=== PATIENT | male | born 2000 | race Caucasian/White ===

== ENCOUNTER 2019-09-18 13:37 | Emergency (ER) | payer BC, SELFPAY ==
[2019-09-18 13:38] VITALS: BP 125/87; PULSE 82; RESP 16; O2SAT 95; BMI 20.3
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
[2019-09-18 14:04] VITALS: O2SAT 97
[2019-09-18] MEDS: ceFAZolin 1,000 mg SDV 1000 MG IM (14:29)
[2019-09-18 14:45] VITALS: BP 125/75; PULSE 91; O2SAT 99
== END 2019-09-18 14:45 | disposition home or self-care (01) ==
LOC: ER 14:38
PROVIDERS: Emergency Provider Family Medicine; Family Provider Nurse Practitioner; PCP Nurse Practitioner Family
DX: S51.812A Laceration without foreign body of left forearm, initial encounter (principal); S00.81XA Abrasion of other part of head, initial encounter; Y04.8XXA Assault by other bodily force, initial encounter
CPT/HCPCS: 12032; 12345; 96372; 99281; 99283; J0690

== ENCOUNTER 2023-02-17 07:23 | Emergency (ER) | payer BC, SELFPAY ==
[2023-02-17 07:47] VITALS: BP 142/93; PULSE 61; RESP 18; TEMP 36.6; O2SAT 100; BMI 21.7
--- NOTE | 2023-02-17 08:02 | W.ED.EXTPRO ---
HPI - Extremity Problem General: Chief complaint: Skin/Abscess/Foreign Body Stated complaint: bump on elbow Time Seen by Provider: 02/17/23 07:24 Source: patient Mode of arrival: ambulatory Limitations: no limitations History of Present Illness: Patient is a 22-year-old male who presents to the emergency department complaining of left elbow pain onset last night. Patient states he woke this morning with pain over his left olecranon, with associated redness and swelling. 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 He has not taken for anything or tried anything such as ice for his pain at this time. He denies fever, nausea, vomiting, or any other signs and symptoms of systemic illness. He states that his pain is acutely worsened by palpation and extending the left arm. The pain is described as stiff and throbbing. It does not radiate up or down the arm. MD Complaint: joint pain (Left elbow) Onset (ago): hour(s) (woke up with symptoms) Pain Consistency: constant Location: left Quality: other (Stiff and throbbing) Radiation: none Relieving factors: immobilization Exacerbating factors: range of motion and palpation Associated symptoms: Reports no associated symptoms; Deny chest pain, fever(s) or rash Context: other (Repetitive pressure on the elbow) Review of Systems Const: Denies: fever(s), chills, body aches, fatigue or malaise Eyes: Denies: change in vision or blurry vision Card: Denies: chest pain, palpitations, irregular heart rhythm, lightheadedness, syncope or dyspnea on exertion Resp: Denies: dyspnea, productive cough or pain on inspiration GI: Denies: abdominal pain, nausea, vomiting, heartburn or diarrhea : Denies: difficulty urinating or dysuria Musc: Reports: joint pain (Left elbow), joint swelling (Left elbow) and joint redness (Left elbow); Denies: neck pain, back pain, extremity pain, extremity swelling, joint stiffness (Left elbow) or limited range of motion (Left elbow) Skin/Breast: Denies: rash Neuro: Denies: numbness in extremities, weakness in extremities or sensory changes PFS ED PFSH: Medical History (Updated 02/17/23 @ 08:17 by LENNY Epps) Spontaneous pneumothorax Social History Smoking and tobacco status: never smoked Physical Exam Const: COMMON NORMALS: no acute distress, average body habitus, patient oriented x3, no limitations, healthy appearing, alert and well nourished Extremity: LEFT UPPER EXTREMITY: Yes elbow joint Left elbow: Yes inspection (Left elbow is mildly edematous and erythematous), Yes palpation (Tenderness to palpation over the left olecranon process), Yes ROM (Range of motion is full but hesitant due to discomfort ) and Yes neurovascular exam (Neurovascularly intact) Neuro: COMMON NORMALS: patient oriented x3, moves all extremities, no focal motor deficits and no sensory deficits noted SENSORIUM/ORIENTATION: Yes alert Skin: COMMON NORMALS: no rashes or lesions noted NARRATIVE SKIN EXAM: no overlying skin abrasions, tears, bites, punctures, etc to suggest infection GENERAL SKIN EXAM: no rashes or lesions noted Course Vital Signs: Vital signs: Vital Signs Temperature 97.8 F 02/17/23 07:47 Pulse Rate 61 02/17/23 07:47 Respiratory Rate 18 02/17/23 07:47 Blood Pressure 142/93 02/17/23 07:47 Pulse Oximetry 100 02/17/23 07:47 MDM - Extremity (Nontraumatic) Medical Decision Making This patient was seen and evaluated in the emergency department today for acute onset left elbow swelling/pain. Examination revealed a swollen and moderately tender left olecranon process to palpation, without signs or symptoms of systemic illness. His clinical presentation is consistent with an inflammatory olecranon bursitis, without signs of septic joint. I feel that it is appropriate to send him home with as needed pain medication as well as a steroid taper to control his pain and swelling. He is given return precautions and symptoms to look out for such as fever and red streaking. Patient agrees with this plan and will be discharged home. Discharge Plan Discharge Patient Disposition: Home Clinical Impression: Bursitis of left elbow Qualifiers: Elbow bursitis location: olecranon bursitis Qualified Code(s): M70.22 - Olecranon bursitis, left elbow Condition: Stable Prescriptions: New prednisone 10 mg tablet 10 mg PO DAILY 10 Days Qty: 27 0RF Rx Instructions: 6 tabs on days 1-2, 5 tabs on days 3, 4 tabs on day 4, 3 tabs on day 5, 2 tabs on day 6, 1 tab on day 7 diclofenac sodium 50 mg tablet,delayed release (DR/EC) 50 mg PO Q12H PRN (Reason: pain) Qty: 20 0RF Discharge Orders: Discharge ED (Routine); Ordered 02/17/23 Ordered By: Katherine Do Patient Instructions: Bursitis - Elbow Activity Restrictions/Additional Instructions: Take prescribed medication as needed for pain, as well as prednisone taper. Avoid putting any pressure on the elbow to allow it appropriate time to heal. You may purchase a padded elbow brace as discussed, for added relief. Apply ice as needed for any swelling or pain relief. Please return if you develop any sudden fevers, red streaking, or a extension of the redness and swelling. Coding Level of Care Code ED Police Booking Officer for Chanel Dumont
--- NOTE | 2023-02-17 08:16 | PC.PHAR ---
did pts med rec but pt was discharged with discharged medications before being able to put in pt takes no rx or otc meds
--- NOTE | 2023-02-20 12:40 | DCPLANNER ---
creative project manager called patient due to no primary care physician - no answer at this time.
--- NOTE | 2023-03-11 13:30 | DCPLANNER ---
solution design and analysis manager called patient due to no primary care physician - assistant case manager unable to speak with patient at this time, a voicemail was left for patient to return window caser phone call.
== END 2023-02-17 08:22 | disposition home or self-care (01) ==
PROVIDERS: Emergency Provider Physician Assistant
DX: M70.22 Olecranon bursitis, left elbow (principal)
CPT/HCPCS: 99283

== ENCOUNTER 2023-05-12 12:38 | Emergency (ER) | payer BC, SELFPAY ==
--- NOTE | 2023-05-12 12:39 | XR_ITS ---
WS: [id number] Left knee, 3 views, 05/12/2023 Clinical Data: injury Comparison: None. Findings: No fractures or dislocations are seen. The joint spaces are normal. The patella is intact. The soft t issues are unremarkable. Impression: Negative left knee. Kellgren-Matias Classification: grade 0 (none): definite absence of x-ray changes of osteoarthritis
[2023-05-12 12:59] VITALS: BP 155/98; PULSE 87; RESP 16; TEMP 36.7; O2SAT 98; BMI 22.4
--- NOTE | 2023-05-12 13:04 | ED_ITS ---
HPI - Extremity Injury (Lower) General: Chief Complaint: Extremity Injury, Lower Stated Complaint: Lt Knee inj Time Seen by Provider: 05/12/23 12:52 Source: patient Mode of arrival: ambulatory Limitations: no limitations History of Present Illness: Patient is a 23-year-old male presents to the emergency department complaining of left knee pain onset last night. Patient states he was wrestling with his friends when he suddenly twisted his left knee after planting weirdly . He does not report any acute swelling or bruising, but states that he woke up this morning and the pain seemed to have gotten worse. He denies any prior injuries or surgeries to the knee. He is able to walk around, though with a limp. Pain is worse with movement/ambulating. He denies numbness, tingling, loss of sensation, color/temp changes. MD complaint: knee injury Onset (ago): day(s) (yesterday) Injury: Left: knee Place: home Relieving factors: immobilization Exacerbating factors: weight bearing, movement and palpation Context: other (twisted) Associated symptoms: Reports no associated symptoms Other symptoms: none Review of Systems Const: Denies: fever(s) Card: Denies: chest pain Resp: Denies: dyspnea Musc: Reports: joint pain (L knee ) and joint swelling (L knee); Denies: neck pain, back pain, extremity pain, extremity swelling, joint redness or joint warmth Neuro: Reports: difficulty walking (secondary to knee pain); Denies: numbness in extremities, weakness in extremities or sensory changes [facility] ED PFSH: Medical History (Updated 05/12/23 @ 13:28 by LENNY Epps) Spontaneous pneumothorax Social History Smoking and tobacco/nicotine status: never used tobacco/nicotine Physical Exam Const: COMMON NORMALS: no acute distress, average body habitus, no limitations, healthy appearing, alert and well nourished Extremity: COMMON NORMALS: normal to inspection, full ROM, capillary refill normal, no clubbing, cyanosis or edema, no calf tenderness and no pedal edema GENERAL: Yes normal exam except as noted LEFT LOWER EXTREMITY: Yes knee joint Left knee: Yes palpation (possible small prepatellar effusion), Yes ROM (normal), Yes neurovascular exam (normal) and Yes other (no obvious joint laxity noted) Neuro: COMMON NORMALS: moves all extremities, no focal motor deficits and no sensory deficits noted SENSORIUM/ORIENTATION: Yes alert Skin: TRAUMA: no lacerations or abrasions Course Vital Signs: Vital signs: Vital Signs Temperature 98.1 F 05/12/23 12:59 Pulse Rate 87 05/12/23 12:59 Respiratory Rate 16 05/12/23 12:59 Blood Pressure 155/98 05/12/23 12:59 Pulse Oximetry 98 05/12/23 12:59 MDM - Extremity Injury (Lower) Medical Decision Making XR negative. Will ANJEL wrap. Offered crutches but he declines. RICE therapy discussed. Recommend follow up with PCP in 1-2 weeks if symptoms do not seem to be improving. XR interpretation done by ED provider, pending radiology final review Discharge Plan Discharge Patient Disposition: Home Clinical Impression: Injury of knee, left Qualifiers: Encounter type: initial encounter Qualified Code(s): S89.92XA - Unspecified injury of left lower leg, initial encounter Condition: Stable Prescriptions: No Action diclofenac sodium 50 mg tablet,delayed release (DR/EC) 50 mg PO Q12H PRN (Reason: pain) Qty: 20 0RF Discharge Orders: Discharge ED (Routine); Ordered 05/12/23 Ordered By: Katherine Do Patient Instructions: RICE Therapy Activity Restrictions/Additional Instructions: As we discussed please follow-up with primary care in 1 to 2 weeks if symptoms do not seem to be improving. Coding Level of Care Code ED Holder Pile Driving for Chanel Dumont
== END 2023-05-12 13:54 | disposition home or self-care (01) ==
PROVIDERS: Emergency Provider Physician Assistant
DX: S89.92XA Unspecified injury of left lower leg, initial encounter (principal); X50.1XXA Overexertion from prolonged static or awkward postures, initial encounter; Y93.72 Activity, wrestling
CPT/HCPCS: 73562; 99283

== ENCOUNTER 2025-06-01 19:59 | Emergency (ER) | payer MEDICAID, SELFPAY ==
[2025-06-01 20:06] VITALS: BP 132/87; PULSE 85; RESP 16; TEMP 36.4; O2SAT 96; BMI 20.9
--- OUTSIDE RECORDS SUMMARY | 2025-06-01 20:08 | XMS_ITS | Patient Health Record ---
Author Organization [facility] Address [address] [place] [address] Care Team Providers Care Drug Enforcement Administration Agent Name Role Phone Ninoska Hunter Primary Care Provider [phone] Gambino, Wendy Unavailable [phone] Allergies No Known Allergies Reason For Referral Reason right elbow pain d eformity swelling elbow Diagnosis 1 Elbow pain, right (M 25.521) Referral Organization [facility] Referring Provider First Name [facility] Referring Provider Last Name Gambino Referring Provider Speciality Nurse Prac titioner Ref[facility] Referred Provider Specialty Orthopedic S urgery General Notes Jaquelin Helms RN 05/22/2025 11:45:26 AM WINCH STRIPPER > Patient was seen on Feb 06. Requested records., Jaquelin Helms RN 05/23/2025 02:46:38 PM WINCH STRIPPER > See note Referral Priority Routine Referral Appointment Date 02/06/2025 Medications Medication SIG (Take, Route, Frequency, Duration) Notes Start Date End Date Status traMADol HCl 50 MG Tablet 1 tablet as needed Orally q 4 hours prn severe pain; Duration: 30 days 01/31/2025 Active PARoxetine HCl 20 MG Tablet 1 tablet in the morning Orally Once a day; Duration: 30 days 10/13/2024 Not-Taking Ibuprofen 800 MG Tablet 1 tab Orally Thr ee times a day pc prn inflammatory pain; Duration: 14 days 01/31/2025 Active Social History Social History Depression Screening Social Info Question Answer Notes PHQ-9 Little interest or pleasure in doing thin gs Not at all Feeling down, depressed, or hopeless Not at all Trouble falling or staying asleep, or sleeping t oo much Not at all Feeling tired or having little energy Not at all Poor appetite or overeating Not at all Feeling bad about yourself, or that you are a failure, or have let yourself or your family down Not at all Trouble concentrating on thi ngs, such as reading the newspaper or watching television Not at all Moving or speaking so slowly that other people could have noticed. Or the opposite ? being so fidgety or restless that you have been moving around a lot more than usual Not at all Thoughts that you would be b gm off , or of hurting yourself in some way Not at all Total Score 0 Drug/Alcohol: Social Info Question Answer Notes AUDIT-C (Standard) Did you have a drink containing alcohol in the past year? Yes How often did you have a drink containing alcohol in the past year? Daily or almost daily (4 points) How many drinks did you have on a typical day when you were drinking in the past year? 5 or 6 drinks (2 points) How often did you have six or more drinks on one occasion in the past year? 4 or more times a week (4 points) Points 10 Interpretation Positive Tobacco Use: Social Info Question Answer Notes Tobacco Control (Standard) Additional Findings: Tobacc o user e-cigarette Section Notes: 10/13/24 PHQ9 10/13/24 PHQ9 10/13/24 PHQ9 Problems Problem Type SNOMED Code ICD Code Onset Dates Problem Status W/U Status Risk Notes Problem Alcohol abuse (53336606) Alcohol abuse (F10.10) Active confirmed Problem Anxiety depression (740937055) Anxiety with depression (F41.8) Active confirmed Vital Signs Heart Rate 67 /min 01/31/2025 Temperature 97.5 degrees Fahrenheit 01/31/2025 Respiratory Rate 20 /min 01/31/2025 Height-cm 182.88 cm 01/31/2025 Oximetry 100 % 01/31/2025 Blood pressure diastolic 85 mm Hg 01/31/2025 Weight-kg 68.95 kg 01/31/2025 Height 72 in 01/31/2025 Blood pressure systolic 136 mm Hg 01/31/2025 Weight 152 lbs 01/31/2025 BMI 20.61 kg/m2 01/31/2025 Encounters Encounter Location Date Provider Diagnosis [facility] [address] [place] [address] 10/13/2024 Ninoska Hunter Anxiety with depression F41.8 ; Alcohol abuse F10.10 and Depression screen Z13.31 [facility] [address] [place] [address] 01/31/2025 Wendy Gambino Elbow pain, right M25.521 [facility] [address] [place] [address] 04/21/2025 Ninoska Hunter Assessments Encounter Date Diagnosis (ICD Code) Assessment Notes Treatment Notes Treatment Clinical Notes Section Notes 01/31/2025 Elbow pain, right (ICD-10 - M25.521) tramadol ibuprofen ortho elevate ice 10/13/2024 Alcohol abuse (ICD-10 - F10.10) Recheck in 1 month. 10/13/2024 Anxiety with depression (ICD-10 - F41.8) Recheck in 1 month. 10/13/2024 Depression screen (ICD-10 - Z13.31) 01/31/2025 Other Questions asked and answered; discharged to home. Plan Of Treatment No Information Insurance Providers Payer Name Payer Address Payer Phone Subscriber Number Group Number Insured Name Patient Relationship to Insured Coverage Start Date Coverage End Date [place] [employer] [address] [address] [place] [address] [id number] MANI GIANG Self - patient is the insured Medical (General) History Surgical History Surgery Date(Month/Year) thoracotomy 2019 Hospitalization History Reason Date(Month/Year) fentanyl overdose 2021
--- OUTSIDE RECORDS SUMMARY | 2025-06-01 20:08 | XMS_ITS | Clinical Summary ---
Author Organization [facility] Address [address] [place] [address] Phone Care Team Providers Care Street Light Servicer Name Role Phone Unavailable Primary Care Provider Unavailabl e Allergies No known active allergies Medications HYDROcodone-thanh taminophen (NORCO) 5-325 mg tabletIndicatio ns:Pain, dental Take 1 Tablet by mouth every 4 hours as needed for Pain. Max Daily Amount: 6 Tablets 12 Tablet 09/16/2024 Active Family History Medical History Relation Name Comments No Known Problems Father No Known Problems Mother Relation Name Status Comments Father Mother Social History Tobacco Use Types Packs/Day Years Used Date Smoking Tobacco: Former Cigarettes Smokeless Tobacco: Never Tobacco Cessation:Counseling Given: Not Answered Alcohol Use Standard Drinks/Week Comments Not Currently 0 (1 standard drink = 0.6 oz pur e alcohol) Feeling Safe Answer Date Recorded Are you in a relationship wi th someone who hurts you emotionally and/or physically? No 09/16/2024 Sex and Gender Information Value Date Recorded Sex Assigned at Not on file Legal Sex Male 3:53 AM CDT Gender Identity Not on file Sexual Orientation Not on file Last Filed Vital Signs Vital Sign Reading Time Taken Comments Blood Pressure 148/100 09/16/2024 4:01 AM CDT Pulse 82 09/16/2024 4:01 AM CDT Temperature 36.9 C (98.4 F) 09/16/2024 4:01 AM CDT Respiratory Rate 16 09/16/2024 4:01 AM CDT Oxygen Saturation 100% 09/16/2024 4:01 AM CDT Inhaled Oxygen Concentration - - Weight 72.3 kg (159 lb 6.4 oz) 09/16/2024 4:01 A M CDT Height 182.9 cm (6') 09/16/2024 4:01 AM CDT Body Mass Index 21.62 09/16/2024 4:01 AM CDT Plan of Treatment Health Maintenance Due Date Last Done Comments DTAP/TDAP/TD VACCINES (1 - Tdap) 2017 INFLUENZA VACCINE (#1) 2025 HPV VACCINES (1 - 3-dose SCD M series) 2025 HEPATITIS B VACCINES Completed 04/14/2001, 09/24/2000, 07/19/2000
[2025-06-01 20:10] VITALS: BP 132/87; PULSE 85; RESP 16; TEMP 36.4; O2SAT 96
[2025-06-01 20:17] LABS: Hematocrit 44.8 % (37-53); Hemoglobin 15.50 g/dL (11.27-16.99); Mean Corpuscular HGB Conc 34.6 g/dL (30-55); Mean Corpuscular Hemoglobin 30.4 pg (27-33); Mean Corpuscular Volume 87.8 fl (82-101); Nucleated Red Blood Cells % 0 %; Platelet Count 280 10^3/cmm (157-399); Red Blood Count 5.10 10^6/uL (3.85-5.65); White Blood Count 8.44 10^3/uL (3.29-11.43)
--- NOTE | 2025-06-01 20:23 | ECG_ITS ---
[facility] 2025[facility]01 Pat Name: Surya Alvarado Department: Room: Gender: Male Geriatric Case Manager: : 2000 Requested By: Ravinder Harrison Order Number: [id number] Melton MD: Kalia Wallace M.D. Measurements Intervals Robbins Rate: 76 P: 57 GA: 146 QRS: 76 QRSD: 106 T: 64 QT: 408 QTc: 461 Interpretive Statements SINUS RHYTHM Compared to ECG 11/08/2018 19:10:35 Sinus arrhythmia no longer present Electronically Signed On 06-03-2025 16:50:36 MOUNTER CLARINETS by Kalia Wallace M.D. [email or web address]
--- NOTE | 2025-06-01 20:24 | ED_ITS ---
HPI - Alcohol 2 General: Chief Complaint: Alcohol Stated Complaint: disoriented. christel, possible withdrawls Time Seen by Provider: 06/01/25 20:08 History of Present Illness: 25-year-old male presents emergency room disoriented having some shaking and slurring of his speech. He is accompanied by his girlfriend he admits to heavy drinking on a regular basis. Readily admits to being highly intoxicated he also uses large amounts of kratom. He has been through rehab at least 3 times in the past. Associated symptoms: Deny abdominal pain Related Data Previous Rx's ?Medication ?Instructions ?Recorded diclofenac sodium 50 mg 50 mg PO Q12H PRN pain #20 t abs 02/17/23 tablet,delayed release pantoprazole 40 mg tablet,delayed 40 mg PO DAILY #30 t abs 06/01/25 release Allergies Allergy/AdvReac Type Severity Reaction Status Date / Time No Known Allergies Allergy Verified 02/17/23 08:15 Review of Systems 2 Const: Denies: fever(s) or chills Card: Denies: chest pain Resp: Denies: dyspnea GI: Denies: abdominal pain : Denies: dysuria, urinary frequency or urinary urgency Musc: Denies: neck pain or back pain Skin/Breast: Denies: rash PFSH ED 2 PFSH: Medical History Spontaneous pneumothorax Social History Smoking and tobacco/nicotine status: never used tobacco/nicotine Physical Exam 2 Const: GENERAL APPEARANCE: cooperative and comfortable O RIENTATION/CONSCIOUSNESS: Yes awake HENMT: COMMON NORMALS: normocephalic, atraumatic and hearing grossly normal bilaterally HEAD & SCALP: normocephalic and atraumatic Resp: COMMON NORMALS: normal respiratory effort, No retractions, No use of accessory muscles and clear to auscultation bilaterally AUSCULTATION: clear to auscultation bilaterally Cardio: COMMON NORMALS: regular rate, regular rhythm and No murmurs present (Cardio) RATE: regular rate RHYTHM: regular rhythm GI: COMMON NORMALS: Soft to palpation and No hepatosplenomegaly present A USCULTATION: Yes normoactive bowel sounds PALPATION: Yes Soft to palpation, No Tenderness to palpation present (GI), No Guarding due to palpation present (GI) and Yes No hepatosplenomegaly present Extremity: COMMON NORMALS: normal to inspection, capillary refill normal, no clubbing, cyanosis or edema, no calf tenderness and no pedal edema Skin: COMMON NORMALS: no rashes or lesions noted GENERAL SKIN EXAM: no rashes or lesions noted Course 2 Vital Signs: Vital signs: Vital Signs Temperature 97.6 F 06/01/25 20:10 Pulse Rate 85 06/01/25 21: Respiratory Rate 18 06/01/25 21:26 Blood Pressure 118/76 06/01/25 21:26 Pulse Oximetry 96 06/01/25 21:26 Oxygen Delivery Me thod Room Air 06/01/25 20:10 MDM - Alcohol Medical Decision Making Medical decision making Social determinants: Significant other in attendance with him I reviewed the patient's medical record. I reviewed the patient's current home meds Alternate historians: Significant other, girlfriend Differential diagnosis: Alcohol withdrawal versus acute alcohol intoxication versus others substances Lab Review: Labs reviewed as found in the chart no clinically significant abnormalities patient is intoxicated blood alcohol markedly elevated Imaging: No imaging done Assessment of risk: Level of risk: Moderate Hospitalization considerations: No indication for hospitalization at this time Reexamination: Patient is highly intoxicated no acute injury. Stable. Assessment and plan: Long discussion with the patient encourage abstinence Kurta consideration of seeking out another outpatient or inpatient rehab program and/or participating in programs such as AA or other stable if possible programs. Discussed his lab results will he does not have any abnormalities now if you would continue drinking at the same rate likely would develop problems in the near future. At this point there is no signs of alcohol withdrawal he is not tachycardic he is highly intoxicated. Will discharge patient home Medical Records I reviewed the patient's medical records. Lab Data I reviewed the patient's lab results. 06/01/25 20:08 06/01/25 20:08 Laboratory Results WBC 8.44 10^3/uL (3.29-11.43) 06/01/25 20:08 RBC 5.10 10^6/uL (3.85-5.65) 06/01/25 20:08 Hgb 15.50 g/dL (11.27-16.99) 06/01/25 20:08 Hct 44.8 % (37-53) 06/01/25 20:08 MCV 87.8 fl (82-101) 06/01/25 20:08 MCH 30.4 pg (27-33) 06/01/25 20:08 MCHC 34.6 g/dL (30-55) 06/01/25 20:08 RDW 11.9 % (12.1-15.1) L 06/01/25 20:08 Plt Count 280 10^3/cmm (157-399) 06/01/25 20:08 MPV 9.4 fL (7.4-10.4) 06/01/25 20:08 Neut % (Auto) 39.8 % 06/01/25 20:08 Lymph % (Auto) 42.1 % 06/01/25 20:08 Giles % (Auto) 8.5 % 06/01/25 20:08 Eos % (Auto) 8.1 % 06/01/25 20:08 Baso % (Auto) 1.1 % 06/01/25 20:08 Neut # (Auto) 3.37 10^3/uL (1.8-7.7) 06/01/25 20:08 Lymph # (Auto) 3.6 10^3/uL (0.8-4.8) 06/01/25 20:08 Giles # (Auto) 0.7 10^3/uL (0.2-0.9) 06/01/25 20:08 Eos # (Auto) 0.7 10^3/uL (0.0-0.8) 06/01/25 20:08 Baso # (Auto) 0.1 10^3/uL (0.0-0.1) 06/01/25 20:08 Nucleated RBC % (auto) 0 % 06/01/25 20:08 Nucleated RBCs # 0.0 /100WBC 06/01/25 20:08 Sodium 137 mmol/L (136-145) 06/01/25 20:08 Potassium 4.1 mmol/L (3.5-5.1) 06/01/25 20:08 Chloride 96 mmol/L (98-107) L 06/01/25 20:08 Carbon Dioxide 25 mmol/L (22-29) 06/01/25 20:08 Anion Gap 20.1 (5-19) H 06/01/25 20:08 BUN 12 mg/dL (6-20) 06/01/25 20:08 Creatinine 1.1 mg/dL (0.7-1.2) 06/01/25 20:08 GFR Calculation 80.3 mL/min (90-130) L 06/01/25 20:08 Glucose 107 mg/dL (65-115) 06/01/25 20:08 POC Glucose 111 mg/dL (70-110) H 06/01/25 20:07 Calculated Osmolality 284 mOsm/kg (285-295) L 06/01/25 20:08 Calcium 9.4 mg/dL (8.5-10.5) 06/01/25 20:08 Total Bilirubin 0.5 mg/dL (0.15-1.2) 06/01/25 20:08 AST 39 U/L (0-40) 06/01/25 20:08 ALT 27 U/L (0-41) 06/01/25 20:08 Alkaline Phosphatase 92 U/L (40-130) 06/01/25 20:08 Total Protein 7.7 g/dL (6.6-8.7) 06/01/25 20:08 Albumin 5.2 g/dL (3.5-5.2) 06/01/25 20:08 Globulin 2.5 g/dL (1.3-4.6) 06/01/25 20:08 Ethyl Alcohol 242 mg/dL (0-10) H 06/01/25 20:08 No radiology studies performed this visit EKG Data EKG 1: I personally reviewed and interpreted this EKG as follows: Interpretation: EKG 06/01/20252022 sinus rhythm rate of 76 SC interval 146 QTc [address] changes noted no available EKGs for comparison Discharge Plan Discharge Patient Disposition: Home Clinical Impression: Alcoholic intoxication, Alcohol abuse Condition: Stable Prescriptions: New pantoprazole 40 mg tablet,delayed release (DR/EC) 40 mg PO DAILY Qty: 30 0RF No Action diclofenac sodium 50 mg tablet,delayed release (DR/EC) 50 mg PO Q12H PRN (Reason: pain) Qty: 20 0RF Discharge Orders: Discharge ED (Routine); Ordered 06/01/25 Ordered By: Ravinder Kothari Referrals: Gambino,Wendy, RESERVATION MANAGER [Primary Care Provider, Nurse Practitioner] Discharge Diet: Usual diet Discharge Activity: Increase activity as tolerated Patient Instructions: Alcohol Intoxication (ED), Opioid Safety, Pain Management, Patient Portal & Sandra Instructions Activity Restrictions/Additional Instructions: Thank you for choosing [facility] for your healthcare needs today. It is very important that you follow up as instructed or that you return to the Emergency Department should you have concerns or if your condition changes or worsens in any way. Emergency department visits are focused on emergent conditions, in some cases you may require further evaluation on an outpatient basis. You were seen in the emergency room with complaints of being disoriented shaking. Your blood alcohol is markedly elevated. Think the symptoms you are experiencing are due to the blood alcohol level. There is no sign of withdrawal from alcohol at this time. Strongly recommend you consider abstaining from alcohol seeking treatment either in an outpatient or inpatient treatment program or alcoholic Anonymous meetings. (Please note that included in your discharge packet is information concerning opioid safety and pain management. This information is given to all patients were discharged from the ER regardless of their discharge diagnosis or the medicines they usually take or are prescribed.) Print Language: South African Coding Level of Care Code ED Barn Manager for Chanel Dumont
[2025-06-01 20:35] LABS: Alanine Aminotransferase 27 U/L (0-41); Albumin Level 5.2 g/dL (3.5-5.2); Alkaline Phosphatase 92 U/L (40-130); Aspartate Amino Transferase 39 U/L (0-40); Blood Urea Nitrogen 12 mg/dL (6-20); Calcium 9.4 mg/dL (8.5-10.5); Carbon Dioxide 25 mmol/L (22-29); Chloride 96 mmol/L (98-107); Globulin 2.5 g/dL (1.3-4.6); Glucose 107 mg/dL (65-115); Osmolality Calculated 284 mOsm/kg (285-295); Sodium 137 mmol/L (136-145); Total Protein 7.7 g/dL (6.6-8.7)
[2025-06-01 20:36] LABS: Alcohol Level 242 mg/dL (0-10)
[2025-06-01 20:41] LABS: Anion Gap 20.1 (5-19); Potassium 4.1 mmol/L (3.5-5.1)
[2025-06-01 20:48] VITALS: BP 132/87; PULSE 85; RESP 18; O2SAT 97
[2025-06-01 21:16] VITALS: BP 120/80; PULSE 76; RESP 16; O2SAT 94
[2025-06-01 21:26] VITALS: BP 118/76; PULSE 85; RESP 18; O2SAT 96
== END 2025-06-01 21:28 | disposition home or self-care (01) ==
PROVIDERS: Emergency Provider Family Medicine; PCP Nurse Practitioner Family
DX: F10.129 Alcohol abuse with intoxication, unspecified (principal); Y90.8 Blood alcohol level of 240 mg/100 ml or more
CPT/HCPCS: 36415; 36416; 80053; 80307; 82962; 85025; 93005; 99284